=== PATIENT | female | born 1970 | race Caucasian/White ===

== ENCOUNTER 2018-03-01 17:25 | Emergency (ER) | payer OTHER ==
[2018-03-01 18:28] LABS: ABSOLUTE EOSINOPHILS # (AUTO) 0.1 10^3/uL (0.0-0.6); ABSOLUTE LYMPHOCYTES (AUTO) 2.1 10^3/uL (0.5-4.7); ABSOLUTE MONOCYTES (AUTO) 0.5 10^3/uL (0.1-1.4); ABSOLUTE NEUT (AUTO) 5.3 10^3/uL (1.7-8.2); BASOPHILS % (AUTO) 0.6 % (0-2); EOSINOPHILS % (AUTO) 0.8 % (0-6); HEMOGLOBIN 12.9 g/dL (12.0-15.5); LYMPHOCYTES % (AUTO) 26.1 % (13-45); MEAN CORPUSCULAR HEMOGLOBIN 27.6 pg (27.0-33.4); MEAN CORPUSCULAR HGB CONC 33.1 g/dL (32.0-36.0); MEAN CORPUSCULAR VOLUME 84 fl (80-97); PLATELET COUNT 287 10^3/uL (150-450); RED BLOOD COUNT 4.68 10^6/uL (3.72-5.28); RED CELL DISTRIBUTION WIDTH 15.3 % (11.5-14.0); SEGMENTED NEUTROPHILS % (AUTO) 66.5 % (42-78); TOTAL CELLS COUNTED % (AUTO) 100 %
[2018-03-01 18:48] LABS: CREATINE KINASE MB 1.21 ng/mL (<4.55); TROPONIN I < 0.012 ng/mL
--- NOTE | 2018-03-01 19:02 | ER Document Report ---
ED General - General Chief Complaint: High Blood Pressure Stated Complaint: BLOOD PRESSURE ISSUE Time Seen by Provider: 03/01/18 18:31 Notes: Patient is a 47-year-old female with a past medical history of hypertension, atrial fibrillation status post ablation, who presents with concerns of hypertension. Patient reports that when she woke up this morning she took her blood pressure was higher than normal. She states that she checked it for 5 times throughout the day and that it continue to be elevated prompting concerns that something could be wrong. Patient reports that she has been taking all medications as prescribed. She does typically check her blood pressure multiple times daily. Patient also complains of a dull, throbbing, constant pain to her left maxillary sinus that is been ongoing for 6-8 weeks. She is scheduled to see ENT in the next 3 days for this issue. She did receive 1 course of antibiotics at the beginning of the illness by her primary care doctor which she states improved the pain. She has not had any fever, vomiting , headache, neck pain or altered mental status. She denies any chest pain or shortness of breath. No focal weakness or numbness. She has no prior cardiac history. No history of aortic pathology. TRAVEL OUTSIDE OF THE [place] IN LAST 30 DAYS: No - Related Data Allergies/Adverse Reactions: No Known Allergies Allergy (Unverified 11/08/12 16:21) Past Medical History - General Information source: Patient - Social History Smoking Status: Never Smoker Frequency of alcohol use: None Drug Abuse: None Lives with: Spouse/Significant other Family History: Reviewed & Not Pertinent, Other - Atrial fibrillation: The - Past Medical History Cardiac Medical History: Reports: Hx Atrial Fibrillation, Hx Hypertension Pulmonary Medical History: Reports: Hx Bronchitis - Immunizations Hx Diphtheria, Pertussis, Tetanus Vaccination: Yes - 2009 Review of Systems - Review of Systems Notes: Constitutional: Negative for fever. HENT: Positive for sinus pain Eyes: Negative for visual changes. Cardiovascular: Negative for chest pain. Respiratory: Negative for shortness of breath. Gastrointestinal: Negative for abdominal pain, vomiting or diarrhea. Genitourinary: Negative for dysuria. Musculoskeletal: Negative for back pain. Skin: Negative for rash. Neurological: Negative for headaches, weakness or numbness. 10 point ROS negative except as marked above and in HPI. Physical Exam - Vital signs Vitals: Resp BP Pulse Ox 20 163/115 H 99 03/01/18 17:37 03/01/18 17:37 03/01/18 17:37 Interpretation: Hypertensive Notes: PHYSICAL EXAMINATION: GENERAL: Well-appearing, well-nourished and in no acute distress. HEAD: Atraumatic, normocephalic. EYES: Pupils equal round and reactive to light, extraocular movements intact, sclera anicteric, conjunctiva are normal. ENT: nares patent, oropharynx clear without exudates. Moist mucous membranes. NECK: Normal range of motion, supple without lymphadenopathy LUNGS: Breath sounds clear to auscultation bilaterally and equal. No wheezes rales or rhonchi. HEART: Regular rate and rhythm without murmurs ABDOMEN: Soft, nontender, normoactive bowel sounds. No guarding, no rebound. No masses appreciated. EXTREMITIES: Normal range of motion, no pitting or edema. No cyanosis. NEUROLOGICAL: No focal neurological deficits. Moves all extremities spontaneously and on command. PSYCH: Normal mood, normal affect. SKIN: Warm, Dry, normal turgor, no rashes or lesions noted. Course - Re-evaluation Re-evalutation: 03/01/18 18:58 Presentation of asymptomatic hypertension. Patient denies any symptoms concerning for SAH, dissection, [place], or encephalopaty. Alert, oriented, and denies any symptoms at time of assessment. Normal neuro exam. Routine labs were obtained prior to my assessment the patient and are noted to be normal. We have discussed at length monitoring her blood pressure intermittently as opposed to multiple times daily. She did also have multiple dietary indiscretions yesterday as it was Easter and this may also be contributing to her hypertension today. The patient is also complaining of a sinus infection and the pain likewise to be contributing to her increased blood pressure. I have asked that she continue to take her home blood pressure medications as prescribed and monitor her pressure at home. In regards to her sinus infection : This is been ongoing for 6 weeks and does meet criteria for treatment with oral antibiotics. Will prescribe a course of clindamycin. At this time will discharge with return precautions and follow-up recommendations. Verbal discharge instructions given a the bedside and opportunity for questions given. Medication warnings reviewed. Patient is in agreement with this plan and has verbalized understanding of return precautions and the need for primary care follow-up in the next 24-72 hours. - Vital Signs Vital signs: Temp Pulse Resp BP Pulse Ox 19 164/95 H 98 03/01/18 19:01 03/01/18 19:00 03/01/18 19:01 - Laboratory Result Diagrams: 03/01/18 17:55 03/01/18 17:55 Laboratory results interpreted by me: 03/01/18 17:55 RDW 15.3 H Discharge - Discharge Clinical Impression: Essential hypertension Maxillary sinusitis Qualifiers: Chronicity: acute Recurrence: not specified as recurrent Qualified Code(s): J01.00 - Acute maxillary sinusitis, unspecified Condition: Good Disposition: HOME, SELF-CARE Additional Instructions: You were seen today for blood pressure that was high. This is a long-term risk factor for multiple medical problems including heart attack and stroke. However, the blood pressure in of itself will not cause you to have an acute stroke or heart attack over the course of just several days or weeks. You need to have a gradual reduction of your blood pressure back to normal levels over the next several months in conjunction with your primary care physician. Return if you develop headache, weakness, numbness, chest pain, pass out, or have any other symptoms that are concerning to you. You may also take the antibiotics that have been prescribed to treat your sinus infection. Follow-up with ENT as scheduled. Return for any symptoms that are concerning to you. Prescriptions: Clindamycin HCl 300 mg PO TID #30 capsule
[2018-03-01 19:08] VITALS: BP 164/95
== END 2018-03-01 19:19 | disposition home or self-care (01) ==
LOC: ER 17:25
DX: I10 Essential (primary) hypertension (principal); J01.00 Acute maxillary sinusitis, unspecified; Z79.899 Other long term (current) drug therapy
CPT/HCPCS: 36415; 82553; 84484; 85025; 99284